=== PATIENT | male | born 1985 | race Caucasian/White ===

== ENCOUNTER 2023-11-17 17:35 | Emergency (ER) | payer SELFPAY ==
[2023-11-17 19:01] LABS: CORONAVIRUS COVID-19 NAA NEGATIVE (NEGATIVE); INFLUENZA A NAA NEGATIVE (NEGATIVE); INFLUENZA B NAA POSITIVE (NEGATIVE); RESPIRATORY SYNCYTIAL VIR NAA NEGATIVE (NEGATIVE)
== END 2023-11-17 19:29 | disposition home or self-care (01) ==
LOC: MW.ED 17:35
DX: J10.1 Influenza due to other identified influenza virus with other respiratory manifestations (principal); I10 Essential (primary) hypertension; F17.200 Nicotine dependence, unspecified, uncomplicated; Z79.899 Other long term (current) drug therapy
CPT/HCPCS: 0241U; 99283